=== PATIENT | female | born 1960 ===

== ENCOUNTER 2018-01-13 11:42 | Emergency (ER) | payer MEDICAID ==
[2018-01-13 12:23] VITALS: RESP 18
--- NOTE | 2018-01-13 15:03 | ED PDOC ---
Arrival/HPI - General Historian: Patient - History of Present Illness Narrative History of Present Illness (Text): 01/13/18 15:00 57yo female with pmhx of hypertension, Diabetes, Asthma, back pain who present with complaint of lower back. Notes history of lower back pain x years. States she is visiting from [place] and ran out of her ??pain medication. Notes worsening pain with movement. She is also requesting a prescription of her diabetic and asthma medication. She denies focal weakness, urinary/fecal incontinence, saddle anesthesia, abdominal pain, urinary symptoms, fever, chills, any other complaint. <Joanne Van A - Last Filed: 01/13/18 17:53> <Alex Freeman - Last Filed: 01/20/18 05:58> - General Chief Complaint: Back Pain Time Seen by Provider: 01/13/18 13:10 Past Medical History - Provider Review Nursing Documentation Reviewed: Yes - Infectious Disease Hx of Infectious Diseases: None - Reproductive Menopause: Yes - Cardiac Hx Hypertension: Yes - Pulmonary Hx Respiratory Disorders: No - Endocrine/Metabolic Hx Diabetes Mellitus Type 2: Yes - Psychiatric Hx Substance Use: No - Anesthesia Hx Anesthesia Reactions: No <DircaritoHappiness A - Last Filed: 01/13/18 17:53> Family/Social History - Physician Review Nursing Documentation Reviewed: Yes Family/Social History: Unknown Family HX Smoking Status: Unknown If Ever Smoked Hx Alcohol Use: No Hx Substance Use: No <DiruHappiness A - Last Filed: 01/13/18 17:53> Allergies/Home Meds <DirJoanne arzate A - Last Filed: 01/13/18 17:53> <Alex Freeman - Last Filed: 01/20/18 05:58> Allergies/Adverse Reactions: Allergies No Known Allergies Allergy (Verified 01/13/18 12:23) Review of Systems - Physician Review All systems were reviewed & negative as marked: Yes - Review of Systems Constitutional: Normal Eyes: Normal ENT: Normal Respiratory: Normal Cardiovascular: Normal Gastrointestinal: Normal Genitourinary Female: Normal Musculoskeletal: Back Pain Skin: Normal Neurological: Normal Endocrine: Normal Hemo/Lymphatic: Normal Psychiatric: Normal <DiruHappiness A - Last Filed: 01/13/18 17:53> Physical Exam Vital Signs Reviewed: Yes Vital Signs Temp Pulse Resp BP Pulse Ox 01/13/18 12:18 98.6 F 76 18 137/82 99 01/13/18 11:42 98.6 F 76 18 137/82 99 Temperature: Afebrile Blood Pressure: Normal Pulse: Regular Respiratory Rate: Normal Appearance: Positive for: Well-Appearing, Non-Toxic, Comfortable Pain Distress: None Mental Status: Positive for: Alert and Oriented X 3 - Systems Exam Head: Present: Atraumatic, Normocephalic Pupils: Present: PERRL Extroacular Muscles: Present: EOMI Conjunctiva: Present: Normal Mouth: Present: Moist Mucous Membranes Neck: Present: Normal Range of Motion Respiratory/Chest: Present: Clear to Auscultation, Good Air Exchange. No: Respiratory Distress, Accessory Muscle Use Cardiovascular: Present: Regular Rate and Rhythm, Normal S1, S2. No: Murmurs Abdomen: No: Tenderness, Distention, Peritoneal Signs Back: Present: Paraspinal Tenderness (paralumbar tenderness). No: Midline Tenderness, Pain with Leg Raise Upper Extremity: Present: Normal Inspection. No: Cyanosis, Edema Lower Extremity: Present: Normal Inspection. No: Edema Neurological: Present: GCS=15, CN II-XII Intact, Speech Normal Skin: Present: Warm, Dry, Normal Color. No: Rashes Psychiatric: Present: Alert, Oriented x 3, Normal Insight, Normal Concentration <Diru,Happiness A - Last Filed: 01/13/18 17:53> Vital Signs Temp Pulse Resp BP Pulse Ox 01/13/18 16:39 98.1 F 68 18 136/81 96 01/13/18 12:18 98.6 F 76 18 137/82 99 01/13/18 11:42 98.6 F 76 18 137/82 99 <Alex Freeman - Last Filed: 01/20/18 05:58> Medical Decision Making ED Course and Treatment: 01/13/18 17:53 PT present for stated history. she was ambulatory in ED and neurologically intact. She reported history of similar pain. Her pain improved in ED with medication. LS xray - Mild DJD. No acute finding. Pt requested rx refill of her trajenta, albuterol and pain medication and it was all refilled. Referred to her PMD. - RAD Interpretation Radiology Orders: 01/13/18 13:10 LS SPINE WITH OBL > 18 YRS OLD [RAD] Stat - Medication Orders Current Medication Orders: Discontinued Medications Ketorolac Tromethamine (Toradol) 30 mg IM STAT STA Stop: 01/13/18 13:11 Last Admin: 01/13/18 13:35 Dose: 30 mg MAR Pain Assessment Document 01/13/18 13:35 SRE (Rec: 01/13/18 13:36 SRE [id number]) Pain Reassessment Is this a pain reassessment? Yes Sleep Is patient sleeping during reassessment? No Presence of Pain Presence of Pain Yes Pain Scale Used Protocol: PSCALES Pain Scale Used Numeric Location Pain Location Body Site Back Description Description Intermittent IM Administration Charges Document 01/13/18 13:35 SRE (Rec: 01/13/18 13:36 SRE [id number]) Charges for Administration # of IM Administrations 1 <Joanne Van - Last Filed: 01/13/18 17:53> ED Course and Treatment: 01/20/18 05:58 The documented history was done by the physician fiscal manager. The documented physical exam was done by the physician fiscal manager. The documented procedures were done by the physician fiscal manager, I was available for consultation during the PA/ARCHITECTURAL PROJECT CAPTAIN evaluation. The chart was reviewed by me, and I agree with the management and plan. - RAD Interpretation Radiology Orders: 01/13/18 13:10 LS SPINE WITH OBL > 18 YRS OLD [RAD] Stat - Medication Orders Current Medication Orders: Discontinued Medications Ketorolac Tromethamine (Toradol) 30 mg IM STAT STA Stop: 01/13/18 13:11 Last Admin: 01/13/18 13:35 Dose: 30 mg MAR Pain Assessment Document 01/13/18 13:35 SRE (Rec: 01/13/18 13:36 SRE [id number]) Pain Reassessment Is this a pain reassessment? Yes Sleep Is patient sleeping during reassessment? No Presence of Pain Presence of Pain Yes Pain Scale Used Protocol: PSCALES Pain Scale Used Numeric Location Pain Location Body Site Back Description Description Intermittent IM Administration Charges Document 01/13/18 13:35 SRE (Rec: 01/13/18 13:36 SRE [id number]) Charges for Administration # of IM Administrations 1 <Alex Freeman - Last Filed: 01/20/18 05:58> Disposition/Present on Arrival - Present on Arrival Any Indicators Present on Arrival: No History of DVT/PE: No History of Uncontrolled Diabetes: No Urinary Catheter: No History of Decub. Ulcer: No History Surgical Site Infection Following: None - Disposition Have Diagnosis and Disposition been Completed?: Yes Disposition Time: 15:05 Patient Plan: Discharge <Joanne Van - Last Filed: 01/13/18 17:53> <Alex Freeman - Last Filed: 01/20/18 05:58> - Disposition Diagnosis: Back pain, Medication refill Disposition: HOME/ ROUTINE Condition: STABLE Discharge Instructions (ExitCare): Low Back Pain (DC) Additional Instructions: Follow up with your doctor Return to ED for any new or worsening symptoms Prescriptions: RX: Albuterol HFA [Ventolin HFA 90 mcg/actuation (8 g)] 1 puff IH Q6 #1 puff Linagliptin [Tradjenta] 5 mg PO DAILY #20 tab Naproxen [Naprosyn] 500 mg PO BID #20 tablet Referrals: Lillie Son MD [Medical Doctor] - Follow up with primary Forms: [employer] ([place])
--- NOTE | 2018-01-13 16:14 | RAD ---
Date of service: 01/13/2018 PROCEDURE: Radiographs of the Lumbar Spine. HISTORY: back pain COMPARISON: No prior. FINDINGS: BONES: Left-sided osteophyte formation at T12-L1 and L1-2. No vertebral compression fractures DISC SPACES: Mild disc space narrowing OTHER FINDINGS: None. IMPRESSION: Mild degenerative changes. No acute findings
[2018-01-13 16:41] VITALS: BP 136/81; PULSE 68; TEMP 98.1; O2SAT 96
== END 2018-01-13 15:20 | disposition home or self-care (01) ==
LOC: ED 11:42
DX: M54.5 Low back pain (principal); Z76.0 Encounter for issue of repeat prescription
CPT/HCPCS: 72110; 96372; 99283; J1885